=== PATIENT | female | born 1950 | race Caucasian/White ===

== ENCOUNTER → 2018-07-03 11:05 | Outpatient (CLI) | payer MEDICARE, BC ==
[~2018-07-03] VITALS: Ht 162.6 cm; Wt 113.4 kg
[~2018-07-03 11:05] MED LIST: AMITRIPTYLINE H50 MG PO; COZAAR50 MG PO; CYMBALTA60 MG PO; GABAPENTIN100 MG PO; HCTZ25 MG PO; ULTRAM50 MG PO; ZOCOR20 MG PO
[2018-07-03 11:47] VITALS: BP 161/93; Ht 162.6 cm; Wt 113.4 kg
[2018-07-03 12:17] LABS: APPEARANCE CLEAR (CLEAR); BILIRUBIN NEGATIVE (NEGATIVE); COLOR YELLOW (YELLOW); GLUCOSE NEGATIVE (NEGATIVE); KETONE NEGATIVE (NEGATIVE); NITRITE NEGATIVE (NEGATIVE); PROTEIN NEGATIVE (NEGATIVE); SPECIFIC GRAVITY 1.005 (1.005-1.020); UROBILINOGEN NORMAL (NORMAL)
== END | disposition home or self-care (01) ==
LOC: D.OPS 10:00
PROVIDERS: Radiology Diagnostic Radiology
DX: N39.0 Urinary tract infection, site not specified (principal); Z01.812 Encounter for preprocedural laboratory examination

== ENCOUNTER 2018-07-10 05:41 | Outpatient (CLI) | payer MEDICARE, BC ==
[~2018-07-10] VITALS: Ht 162.6 cm; Wt 113.6 kg
--- NOTE | ~2018-07-10 | HEMODYNAMI ---
PATIENT:SHELL BRYANT MEDICAL RECORD: [id number] : 52 LOCATION:[facility] ADMISSION DATE: 07/10/18 Generatedon:07/10/20189:29 Patient name: SHELL BRYANT Patient #: [id number] SSN: : 1950 Date of study: 07/10/2018 Page: Of Hemodynamic Procedure Report Patient Data Patient Demographics Procedure consent was obtained First Name: SHELL Gender: Female Last Name: ANNETTE : 1950 [facility] Initial: NÉSTOR Age: 68 year(s) Patient #: [id number] Race: Unknown Additional ID: [id number] Contact details [address]: [address] [place] [address] State: [place] City: [place] Zip code: [address] Admission Admission Data Admission Date: 07/10/2018 Admission Time: 5:41 Procedure Procedure Types Cath Procedure Peripheral Cath Diagnostic Procedure Kyphoplasty Kyphoplasty Lumbar Procedure Description Procedure Date Procedure Date: 07/10/2018 Procedure Start Time: 8:43 Procedure Staff Name Function Chepe Henning MD Performing Physician Ivis Gibson RT Monitor Parul Rivas RN Nurse Teresita Lima RN Nurse Gerber Pollard RT Scrub Procedure Data Cath Procedure Fluoroscopy Diagnostic fluoroscopy Total fluoroscopy Time: 7.3 time: 7.3 min min Diagnostic fluoroscopy Total fluoroscopy dose: 890 dose: 890 mGy mGy Procedure Medications Medication Administration Route Dosage Heparin Flush Bag added to field 3 bags (1000units/500ml NS) Lidocaine 1% added to field 20 Vancomycin I.V.P.B 500 mg Versed I.V. 2 mg Fentanyl I.V. 100 mcg Versed I.V. 1 mg Fentanyl I.V. 50 mcg Versed I.V. 1 mg Fentanyl I.V. 50 mcg Hemodynamics Rest Heart Rate: 83 (bpm) Snapshots Pre Cath Intra NCS Post Cath Vital Signs Time Heart Resp SPO2 etCO2 NIBP (mmHg) Rhythm Pain Sedation Rate (ipm) (%) (mmHg) Status Level (bpm) 8:30:45 84 12 97 37 No Cuff NSR 0 (11) 10(A) , No pain 8:35:13 85 20 100 38.5 169/90(152) NSR 0 (11) 10(A) , No pain 8:39:52 85 10 100 37 171/89(124) NSR 0 (11) 10(A) , No pain 8:44:32 83 18 100 34.7 181/84(127) NSR 0 (11) 10(A) , No pain 8:49:32 79 38 100 36.2 Measuring NSR 0 (11) 10(A) , No pain 8:50:39 79 35 100 37 165/89(130) NSR 0 (11) 10(A) , No pain 8:55:15 74 13 99 33.2 176/88(117) NSR 0 (11) 8(A) , No pain 8:59:52 76 11 98 37.7 160/89(123) NSR 0 (11) 8(A) , No pain 9:04:27 77 12 99 37.8 177/87(126) NSR 0 (11) 8(A) , No pain 9:09:26 76 10 98 33.2 Measuring NSR 0 (11) 8(A) , No pain 9:10:27 78 9 97 37.7 156/81(123) NSR 0 (11) 8(A) , No pain 9:14:59 77 10 98 38.5 160/92(131) NSR 0 (11) 8(A) , No pain 9:19:38 78 10 99 37 164/77(127) NSR 0 (11) 8(A) , No pain 9:24:16 76 20 99 41.5 159/78(126) NSR 0 (11) 8(A) , No pain 9:28:55 76 30 99 44.6 171/79(121) NSR 0 (11) 8(A) , No pain Medications Time Medication Route Dose Verified Delivered Reason Notes Effec tiveness by by 8:44:36 Heparin Flush added 3 Chepe Mo used for Bag to bags Milady Henning procedure (1000units/500ml field MD ROSARIO NS) 8:44:49 Lidocaine 1% added 20ml Chepe Mo used for to vial Milady Henning procedure field MD ROSARIO 8:45:08 Vancomycin I.V.P.B 500 Chepe Mcculloughody used for mg Milady Rivas clinical pharmacist 8:45:20 Versed I.V. 2 mg Chepe Mcculloughody for Milady Rob RN sedation 8:45:30 Fentanyl I.V. 100 Chepe Parul for mcg Milady Rob RN sedation 8:50:53 Versed I.V. 1 mg Chepe Parul for Milady Rob RN sedation 8:51:01 Fentanyl I.V. 50 Chepe Parul for mcg Milady Rob RN sedation 9:04:57 Versed I.V. 1 mg Chepe Parul for SOFT Milady Rob RN sedation NICHOLAS ROSARIO 9:05:05 Fentanyl I.V. 50 Chepe Parul for mcg Milady Rob RN sedation Procedure Log Time Note 8:15:53 Parul Rivas RN sent for patient. Start room use. 8:16:02 Time tracking: Regular hours (M-F 7:00 - 5:00) 8:16:06 Plan of Care:Hemodynamics will remain stable., Cardiac rhythm will remain stable., Comfort level will be maintained., Respiratory function will remain adequate., Patient/ family verbilizes understanding of procedure., Procedure tolerated without complication., Recovers from procedure without complications.. 8:16:14 Patient received from Outpatients to IR Alert and oriented. Tansferred to table in Prone position. 8:16:16 Correct patient and procedure confirmed by team. 8:16:18 Signed procedure consent form obtained from patient. 8:16:20 ECG and BP/O2 sat monitors applied to patient. 8:16:21 Full Disclosure recording started 8:16:22 8:16:26 H&P Date Dictated: 07/10/2018 H&P Addendum completed by physician on day of procedure. (MUST COMPLETE FOR ALL OUTPATIENTS). 8:16:27 Pre-procedure instructions explained to patient. 8:16:28 Pre-op teaching completed and patient verbalized understanding. 8:16:29 Family in waiting room. 8:16:32 Patient NPO since Midnight. 8:16:36 Is the patient allergic to Iodine/contrast media? No. 8:16:38 Is patient on blood thinner?No 8:16:47 Patient diabetic? No. 8:16:49 8:16:49 ----Pre-sedation anethsthesia assessment.---- 8:16:53 Previous problem with sedation/anesthesia? No ? 8:16:55 Snore? Yes 8:16:57 Sleep apnea? No 8:16:59 Deviated septum? No 8:17:01 Opens mouth fully? Yes 8:17:05 Sticks out tongue? Yes 8:17:07 Airway obstruction? No ? 8:17:09 Dentures? No ? 8:17:14 Patient pain scale 0/10 no. 8:17:20 IV patent on arrival in left hand with 0.9% NaCl at KVO. 8:17:27 Use device set IR Diagnostic 8:17:30 Sterile Angiographic Pack opened to sterile field. 8:17:30 Tegaderm 4 x 4 ([id number]) opened to sterile field. 8:27:22 Bag Decanter () opened to sterile field. 8:29:55 Vital chart was started 8:29:57 Baseline sample Acquired. 8:30:03 8:31:10 Lumbar area was prepped with dura-prep and draped in sterile fashion 8:31:23 8:36:13 [place] BONE BX 11GA kit opened to sterile field. 8:36:14 CHIDI BNCMNT CURV BALLOON [id number] opened to sterile field. 8:36:15 [place] BONE CEMENT WITH NEEDLE AUTOPLEX Kit opened to sterile field. 8:40:15 Physician arrived 8:40:47 --------ALL STOP TIME OUT------ 8:40:47 Final Timeout: patient, procedure, and site verified with staff and physician. All members of the team are in agreement. 8:43:21 Procedure started. 8:44:36 Heparin Flush Bag (1000units/500ml NS) 3 bags added to field was administered by Chepe Henning MD; used for procedure; 8:44:49 Lidocaine 1% 20ml vial added to field was administered by Chepe Henning MD; used for procedure; 8:45:08 Vancomycin 500 mg I.V.P.B was administered by Parul Rivas RN; used for procedure; 8:45:20 Versed 2 mg I.V. was administered by Parul Rivas RN; for sedation; 8:45:30 Fentanyl 100 mcg I.V. was administered by Parul Rivas RN; for sedation; 8:50:53 Versed 1 mg I.V. was administered by Parul Rivas RN; for sedation; 8:51:01 Fentanyl 50 mcg I.V. was administered by Parul Rivas RN; for sedation; 8:51:28 Jamshidi needle introduced. 9:00:11 Bone bx needle placed. 9:03:24 Kyphoplasty balloon introduced. 9:04:57 Versed 1 mg I.V. was administered by Parul Rivas RN; for sedation; SOFT SNORE 9:05:05 Fentanyl 50 mcg I.V. was administered by Parul Rivas RN; for sedation; 9:06:40 Cement introduced to vertebral body. 9:16:07 Jamshidi needle removed. 9:20:01 Procedure ended.(Physican Out) 9:20:17 Fluoroscopy time 07.30 minutes. 9:20:22 Flurop Dose total: 890 9:20:22 Fluoroscopy dose: 890 mGy 9:20:25 Procedure and supply charges have been captured, reviewed, submitted and are correct. 9:22:16 Report given to Outpatients. 9:29:28 Patient transfered to Outpatients with Stretcher. 9:29:53 Vital chart was stopped Device Usage Item Name Manufacture Quantity Catalog Hospital Part Current Minim al Lot# / Number Charge Number Stock Stock Serial# Code Sterile [place] 1 [id number] 5 Angiographic Health Pack Tegaderm 4 x 3M 1 [id number] 5 4 (1626W) Bag Decanter [employer] 1 2001S [id number] 5 (2001S) [employer] Chidi BONE Chidi 1 [id number] 5 BX 11GA kit CHIDI Chidi 1 [id number] 9 BNCMNT CURV BALLOON [id number] [place] BONE [place] 1 [id number] 5 CEMENT WITH NEEDLE AUTOPLEX Kit Signature Audit [place] Stage Time Signature Unsigned Intra-Procedure 07/10/2018 Ivis Gibson 9:29:49 AM RT(R) Signatures Monitor : Ivis Gibson RT Signature : Date : Time : [address] [address]
[2018-07-10 06:22] LABS: BASOPHILS 0.7 % (0-2); EOSINOPHILS 5.2 % (0-7); HEMATOCRIT 37.7 % (36.0-48.0); HEMOGLOBIN 12.3 g/dL (12-16); IMMATURE GRANULOCYTES 0.2 % (0-5); LYMPHOCYTES 27.3 % (15-50); MCH 31.8 pg (26.0-34.0); MCHC 32.6 g/dL (31.0-37.0); MCV 97.4 fL (80.0-100.0); MEAN PLATELET VOLUME 9.2 fL (7.4-10.4); MONOCYTES 9.9 % (2-11); NEUTROPHILS 56.7 % (40-80); PLATELET COUNT 266 10x3/uL (130-400); RBC 3.87 10x6/uL (4.00-5.40); RDW 13.3 % (11.5-14.5)
[2018-07-10 06:30] LABS: APTT 27.8 SECONDS (22.8-39.4); INR 1.03 (0.85-1.17)
[2018-07-10 06:47] LABS: ANION GAP 9.7 mmol/L (8-16); CALCIUM 9.1 mg/dL (8.5-10.1); CARBON DIOXIDE 30.2 mmol/L (21.0-32.0); CREATININE - SERUM 0.9 mg/dL (0.6-1.3); POTASSIUM - SERUM 3.9 mmol/L (3.5-5.1)
[2018-07-10] MEDS ORDERED: ZOCOR20 MG PO (06:51)
[2018-07-10] MEDS ORDERED: AMITRIPTYLINE H50 MG PO (06:52)
[2018-07-10] MEDS ORDERED: GABAPENTIN100 MG PO (06:52)
[2018-07-10] MEDS ORDERED: HCTZ25 MG PO (06:55)
[2018-07-10] MEDS ORDERED: COZAAR50 MG PO (06:56)
[2018-07-10] MEDS ORDERED: CYMBALTA60 MG PO ×2 (06:56→06:59)
[2018-07-10] MEDS ORDERED: ULTRAM50 MG PO (06:58)
[2018-07-10 07:12] VITALS: BP 130/64; Ht 162.6 cm; Wt 113.6 kg
== END 2018-07-10 12:48 | disposition home or self-care (01) ==
LOC: D.SP 05:41 → D.RAD 08:00 → D.SP 08:00
PROVIDERS: Radiology Diagnostic Radiology
DX: M48.56XA Collapsed vertebra, not elsewhere classified, lumbar region, initial encounter for fracture (principal); Z01.812 Encounter for preprocedural laboratory examination